=== PATIENT | male | born 1995 | race Caucasian/White ===

== ENCOUNTER → 2020-11-21 13:04 | Outpatient (CLI) | payer OTHER, MEDICAID, SELFPAY ==
[2020-11-21] MEDS: COVID-19 VACC, Ad26(JANSSEN)/PF 0.5 ML IM (13:18)
== END ==
PROVIDERS: Visit Provider Internal Medicine
DX: Z23 Encounter for immunization (principal)
CPT/HCPCS: 0031A; 91303